=== PATIENT | male | born 1975 | race African-American/Black ===

== ENCOUNTER 2017-11-25 11:51 | Inpatient (IN) ==
[2017-11-25] MEDS ORDERED: SODIUM CHLORIDE 0.9% 1,000 ML IV STA ×2 (12:46→14:56)
[2017-11-25] MEDS ORDERED: ONDANSETRON 4 MG/2 ML VIAL IV STA (12:46)
[2017-11-25] MEDS ORDERED: INSULIN REGULAR 100 UNIT/ML SUBCUT STA (12:46)
[2017-11-25] MEDS ORDERED: INSULIN REGULAR 100 UNIT/ML ONE (12:51)
[2017-11-25] MEDS ORDERED: ONDANSETRON 4 MG/2 ML VIAL ONE (12:52)
[2017-11-25 12:55] LABS: Basophils # 0.1 10*3/uL (0.0-0.2); Basophils % 0.6 % (0.0-0.8); Eosinophils % 0.2 % (0.00-10.9); Hematocrit 50.5 VOL% (42.0-52.0); Hemoglobin 17.6 GM/DL (14.0-18.0); Immature Granulocytes % 0.7 %; Immature Granulocytes Absolute 0.09 #; Lymphocytes # 2.1 10*3/uL (1.4-4.0); Lymphocytes % 16.6 % (21.2-54.2); Mean Corpuscular HGB Conc 34.9 GM/DL (32-36); Mean Corpuscular Hemoglobin 31 PG (27-34); Mean Corpuscular Volume 88.4 FL (87-102); Mean Platelet Volume 11.5 FL (9.6-12.0); Monocytes # 0.7 10*3/uL (0.11-0.8); Monocytes % 5.2 % (1.7-12.7); Neutrophils # 9.7 10*3/uL (1.4-7.4); Neutrophils % 76.7 % (38.7-73.9); Platelet Count 247 T/CUMM (130-400); Red Blood Count 5.71 MC/CUMM (3.8-5.5); Red Cell Distribution Width 12.2 % (9.3-17.3); White Blood Count 12.7 T/CUMM (4-12)
[2017-11-25 13:23] LABS: Albumin 3.9 G/DL (3.4-5.0); Bilirubin,Total 0.9 MG/DL (0.2-1.0); Calcium 9.3 MG/DL (8.5-10.1); Osmolality,Calculated 282.2 MOS/KG (273-304); Potassium 4.7 MMOL/L (3.5-5.1); Total Protein 7.8 G/DL (6.4-8.3)
[2017-11-25 14:00] LABS: Apearance,Urine CLEAR (Clear); Bilirubin,Urine Negative (Negative); Blood, Urine Moderate mg/dL (Negative); Glucose,Urine (UA) >=500 mg/dL (Negative); Ketones,Urine 80 mg/dL (Negative); Mucus,Urine Occasional /LPF (Occasional); Nitrite,Urine Negative (Negative); Protein,Urine 100 MG/DL; RBC,Urine 21 /HPF (0-4); Squamous Epithelial Cell,Urine Occasional /HPF (0-10); Urine Color Yellow (Yellow); Urine Specific Gravity 1.028 (1.001-1.035); Urine Urobilinogen < 2.0 EU/DL (0.2-1.0); WBC,Urine 1 /HPF (0-6)
[2017-11-25] MEDS ORDERED: DILTIAZEM 50 MG/10 ML VIAL IV STA (14:31)
[2017-11-25] MEDS ORDERED: DILTIAZEM 100 MG VIAL.ADD IV ONE (14:41)
[2017-11-25] MEDS ORDERED: SODIUM CHLORIDE 0.9% 100 ML IV ONE (14:42)
[2017-11-25] MEDS ORDERED: DILTIAZEM 25 MG/5 ML VIAL IV STA (14:49)
[2017-11-25] MEDS: DILTIAZEM INJ 100 MG in SODIUM CHLORIDE 0.9% 100 ML IV SCH (15:01)
[2017-11-25 15:09] LABS: Troponin I Only 0.022 NG/ML (0.00-0.045)
[2017-11-25 17:07] LABS: ABG Base Excess -1.5 MMOL/L (-2.5-2.5); ABG HCO3 21.9 MMOL/L (20-26); ABG PCO2 33.9 MM HG (35-48); ABG PH 7.428 (7.35-7.45); ABG PO2 90.9 MM HG (80-95); ABG TCO2 22.9 MMOL/L (23-27); Allen Test Positive
[2017-11-25] MEDS ORDERED: POTASSIUM CHLORIDE RIDER 10 MEQ in PREMIX 1 EACH IV PRN (17:10)
[2017-11-25] MEDS ORDERED: ENOXAPARIN 40 MG/0.4 ML SYRINGE SUBCUT SCH (17:10)
[2017-11-25] MEDS ORDERED: INSULIN REGULAR 100 UNIT/ML IV ONE (17:10)
[2017-11-25] MEDS ORDERED: SODIUM BICARB INJ 100 MEQ in STERILE WATER INJ 400 ML IV PRN (17:10)
[2017-11-25] MEDS ORDERED: DEXTROSE 50% 25 GM/50 ML VIAL IV PRN ×2 (17:10)
[2017-11-25] MEDS ORDERED: SODIUM CHLORIDE 0.9% 1,000 ML IV ONE (17:10)
[2017-11-25] MEDS ORDERED: MAGNESIUM SULF RIDER 2 GM in PREMIX 1 EACH IV PRN (17:10)
[2017-11-25] MEDS ORDERED: MAGNESIUM SULF RIDER 4 GM in PREMIX 1 EACH IV PRN (17:10)
[2017-11-25] MEDS ORDERED: INSULIN REGULAR DRIP 100 ML IV SCH (17:10)
[2017-11-25] MEDS ORDERED: SODIUM PHOSPHATE INJ 26.5 MMOL in SODIUM CHLORIDE 0.9% 250 ML IV PRN (17:10)
[2017-11-25] MEDS: SODIUM CHLORIDE 0.9% 1,000 ML IV SCH ×2 (17:35→19:23)
[2017-11-25] MEDS: amLODIPine 10 MG TABLET PO SCH (17:36)
[2017-11-25] MEDS: CARVEDILOL 6.25 MG TABLET PO SCH ×2 (17:36→21:57)
[2017-11-25] MEDS ORDERED: ENOXAPARIN 60 MG/0.6 ML SYRINGE SUBCUT ONE (18:30)
[2017-11-25 18:31] LABS: Magnesium 1.9 MG/DL (1.8-2.4)
[2017-11-25 18:36] LABS: Calcium 8.7 MG/DL (8.5-10.1); Osmolality,Calculated 280.7 MOS/KG (273-304); Potassium 4.2 MMOL/L (3.5-5.1); Troponin I Only 0.03 NG/ML (0.00-0.045)
[2017-11-25] MEDS ORDERED: SODIUM CHLORIDE 0.9% 1,000 ML IV SCH (20:55)
[2017-11-25 22:09] LABS: Potassium 3.5 MMOL/L (3.5-5.1)
[2017-11-26 01:24] LABS: Calcium 7.7 MG/DL (8.5-10.1); Osmolality,Calculated 285.1 MOS/KG (273-304); Potassium 3.6 MMOL/L (3.5-5.1)
[2017-11-26] MEDS: DEXT 5% NACL 0.45% KCL 20 MEQ 20 MEQ/1,000 ML BAG IV SCH ×2 (01:34→05:36)
[2017-11-26 05:39] LABS: Basophils % 0.3 % (0.0-0.8); Eosinophils # 0.1 10*3/uL (0.0-0.87); Eosinophils % 0.6 % (0.00-10.9); Hemoglobin 14.9 GM/DL (14.0-18.0); Immature Granulocytes % 0.3 %; Immature Granulocytes Absolute 0.04 #; Lymphocytes # 3.2 10*3/uL (1.4-4.0); Lymphocytes % 25.7 % (21.2-54.2); Mean Corpuscular HGB Conc 33.9 GM/DL (32-36); Mean Corpuscular Hemoglobin 30 PG (27-34); Mean Corpuscular Volume 89.6 FL (87-102); Mean Platelet Volume 11.1 FL (9.6-12.0); Monocytes # 0.9 10*3/uL (0.11-0.8); Neutrophils # 8.2 10*3/uL (1.4-7.4); Neutrophils % 66.1 % (38.7-73.9); Platelet Count 213 T/CUMM (130-400); Red Blood Count 4.91 MC/CUMM (3.8-5.5); Red Cell Distribution Width 12.4 % (9.3-17.3); White Blood Count 12.4 T/CUMM (4-12)
[2017-11-26 06:10] LABS: Calcium 7.8 MG/DL (8.5-10.1); Osmolality,Calculated 279.3 MOS/KG (273-304); Potassium 3.9 MMOL/L (3.5-5.1)
[2017-11-26 06:11] LABS: Magnesium 1.8 MG/DL (1.8-2.4)
[2017-11-26 06:31] LABS: Risk Ratio 5.93; VLDL CHOLESTEROL 15.4 MG/DL
[2017-11-26] MEDS: DILTIAZEM INJ 100 MG in SODIUM CHLORIDE 0.9% 100 ML IV SCH (07:30)
[2017-11-26] MEDS ORDERED: DEXTROSE 50% 25 GM/50 ML VIAL IV PRN (08:58)
[2017-11-26] MEDS ORDERED: GLUCAGON 1 MG VIAL IM PRN (08:58)
[2017-11-26] MEDS: SODIUM CHLORIDE 0.45% 1,000 ML IV SCH ×2 (09:00→17:00)
[2017-11-26] MEDS: INSULIN GLARGINE 100 UNIT/ML SUBCUT SCH ×2 (09:09→20:46)
[2017-11-26] MEDS: CARVEDILOL 6.25 MG TABLET PO SCH ×2 (09:11→20:47)
[2017-11-26] MEDS: amLODIPine 10 MG TABLET PO SCH (09:12)
[2017-11-26] MEDS: INSULIN REGULAR 100 UNIT/ML SUBCUT SCH ×3 (11:12→20:46)
[2017-11-26] MEDS: ENOXAPARIN 40 MG/0.4 ML SYRINGE SUBCUT SCH (13:53)
[2017-11-26] MEDS: ACETAMINOPHEN 325 MG TABLET PO PRN (13:54)
[2017-11-26] MEDS ORDERED: ENOXAPARIN 120 MG/0.8 ML SYRINGE SUBCUT SCH (18:00)
[2017-11-27] MEDS: SODIUM CHLORIDE 0.45% 1,000 ML IV SCH ×2 (01:20→10:00)
[2017-11-27 06:45] LABS: Osmolality,Calculated 277.4 MOS/KG (273-304); Potassium 3.8 MMOL/L (3.5-5.1)
[2017-11-27] MEDS: amLODIPine 10 MG TABLET PO SCH (08:53)
[2017-11-27] MEDS: CARVEDILOL 6.25 MG TABLET PO SCH (08:53)
[2017-11-27] MEDS: ACETAMINOPHEN 325 MG TABLET PO PRN (08:54)
[2017-11-27] MEDS: INSULIN REGULAR 100 UNIT/ML SUBCUT SCH ×2 (10:00→12:10)
[2017-11-27] MEDS: INSULIN GLARGINE 100 UNIT/ML SUBCUT SCH (10:00)
[2017-11-27 11:52] VITALS: BP 151/87
[2017-11-27] MEDS: ENOXAPARIN 40 MG/0.4 ML SYRINGE SUBCUT SCH (12:37)
== END 2017-11-27 14:40 | disposition home or self-care (01) | DRG 308 ==
LOC: N.ED 11:51 → N.EDINP 15:42 → N.CC 17:07 → N.5E 11-26 22:59
PROVIDERS: ADMIT Internal Medicine; ATTEND Internal Medicine